=== PATIENT | female | born 1990 | race Two or more races ===

== ENCOUNTER 2020-02-13 18:32 | Emergency (ER) | payer BC, OTHER ==
[~2020-02-13] VITALS: Ht 160 cm; Wt 62.6 kg
[2020-02-13 18:58] LABS: BASOPHILS % (AUTO) 0.4 % (0.0-2.0); EOSINOPHILS % (AUTO) 0.5 % (0.0-7.0); HEMATOCRIT 39.6 % (31.2-41.9); HEMOGLOBIN 13.4 g/dL (10.9-14.3); MEAN CORPUSCULAR HEMOGLOBIN 28.4 uug (24.7-32.8); MEAN CORPUSCULAR HGB CONC 34 g/dL (32.3-35.6); MEAN CORPUSCULAR VOLUME 83.8 fL (75.5-95.3); MONOCYTES # (AUTO) 0.4 K/uL (2.0-10.0); MONOCYTES % (AUTO) 4.6 % (0.0-11.0); NEUTROPHILS # (AUTO) 6.2 K/uL (1.8-8.9); NEUTROPHILS % (AUTO) 63.5 % (38.5-71.5); PLATELET COUNT (AUTO) 246 K/uL (179-408); RED BLOOD CELL COUNT(AUTO) 4.72 MIL/uL (3.63-4.92); WHITE BLOOD COUNT (AUTO) 9.7 K/uL (3.8-11.8)
[2020-02-13 19:00] LABS: *BILIRUBIN,URIN NEGATIVE (NEGATIVE); *BLOOD, URINE NEGATIVE (NEGATIVE); *CLARITY,URINE CLEAR (CLEAR); *COLOR,URINE YELLOW (YELLOW); *KETONES,URINE 1+ (NEGATIVE); *UROBILINOGEN,URINE 0.2 E.U./dl (NORMAL); LEUKOCYTE ESTERASE ,URINE 1+ (NEGATIVE); NITRITE, URINE NEGATIVE (NEGATIVE); UGLUCOSE NEGATIVE (NEGATIVE)
[2020-02-13 19:03] LABS: *URINE HCG, QUAL POSITIVE (NEGATIVE)
[2020-02-13 19:08] LABS: BACTERIA,URINE FEW /HPF (NONE SEEN)
[2020-02-13 19:09] LABS: SQUAMOUS EPITHELIAL CELL,UR FEW /HPF (NONE SEEN)
[2020-02-13 19:16] LABS: BILIRUBIN,DIRECT 0.1 mg/dL (0.0-0.2); BILIRUBIN,TOTAL 0.8 mg/dL (0.2-1.0); CREATININE 0.8 mg/dL (0.6-1.3); POTASSIUM 4.3 mmol/L (3.5-5.1); TOTAL PROTEIN, SERUM 7.5 g/dL (6.4-8.2)
--- NOTE | 2020-02-13 19:20 | NUR ---
Assumed care for patient at this time. Received report from AM nurse.
--- NOTE | 2020-02-13 19:31 | NUR ---
Female SHABBIR tech at bedside for pelvic SHABBIR.
--- NOTE | 2020-02-13 20:28 | NUR ---
Pt aware that we are still waiting for [facility] results to be read by HODAN.
--- NOTE | 2020-02-13 20:41 | NUR ---
performed Pelvic examination chaperoned by Hector MCDUFFIE.
--- NOTE | 2020-02-13 21:03 | NUR ---
Patient discharged to home in stable condition. Written and verbal after care instructions given. Stressed to follow up with Dr. Shankar, patient's OB/GYNE, or return to ER for worsening s/s. Prescription for antibiotics for UTI also provided and teachinng provided. Patient verbalizes understanding of instructions. Walked out of ER in steady gait.
[2020-02-13 21:05] VITALS: BP 120/70
== END 2020-02-13 21:06 | disposition home or self-care (01) ==
LOC: ER 18:40
DX: O26.891 Other specified pregnancy related conditions, first trimester (principal); R82.81 Pyuria; R10.30 Lower abdominal pain, unspecified
CPT/HCPCS: 36415; 76856; 84703; 85025; 87077; 87086; A4663